=== PATIENT | male | born 1990 | race Caucasian/White ===

== ENCOUNTER 2023-04-16 10:26 | Emergency (ER) | payer OTHER, MEDICAID ==
[~2023-04-16] VITALS: Ht 185.4 cm; Wt 129.0 kg
[2023-04-16 10:37] VITALS: O2SAT 99
[2023-04-16] MEDS ORDERED: KETOROLAC 15MG/ML VIAL IV ONE ×2 (12:15→16:15)
[2023-04-16] MEDS ORDERED: AMPICILLIN SOD/SULBACTAM NA 3 G in SODIUM CHLORIDE 0.9% 100 ML IV SCH (12:15)
[2023-04-16 13:08] LABS: BASOPHILS % 0.3 % (0.0-2.0); EOSINOPHILS % 0.3 % (0.0-5.0); HEMATOCRIT. 48.5 % (42.0-52.0); HEMOGLOBIN. 16.6 g/dL (14.0-18.0); LYMPHOCYTES % 10.8 % (20.0-50.0); MEAN CORPUSCULAR HEMOGLOBIN 29.8 pg (28.0-32.0); MEAN CORPUSCULAR HGB CONC 34.3 g/dL (31.0-37.0); MEAN CORPUSCULAR VOLUME 87.1 fL (80.0-94.0); MEAN PLATELET VOLUME 7.3 fl (7.4-10.4); MONOCYTES % 8.7 % (2.0-8.0); NEUTROPHILS % 79.9 % (40.0-76.0); PLATELET 287 x1000/uL (130-400); RED BLOOD CELL COUNT 5.57 mill/uL (4.7-6.1); RED CELL DISTRIBUTION WIDTH 12.7 % (11.6-14.6); WHITE BLOOD COUNT 13.6 x1000/uL (4.5-11.0)
[2023-04-16 13:14] LABS: CHLORIDE 102 mEq/L (98-107); INDEX HEMOLYSI 1 (1-3); INDEX ICTERIC 1 (1-4); INDEX LIPEMIC 1 (1-3); POTASSIUM 3.5 mEq/L (3.5-5.1); SODIUM 136 mEq/L (136-145)
[2023-04-16 13:24] LABS: ALANINE AMINOTRANSFERASE 29 IU/L (13-61); ALBUMIN 4.5 g/dL (3.4-5.0); ASPARTATE AMINOTRANSFERASE 14 IU/L (15-37); BILIRUBIN TOTAL 1.4 mg/dL (0.1-1.0); CALCIUM 9.5 mg/dL (8.5-10.1); CARBON DIOXIDE 28 mEq/L (21-32); CREATININE 0.9 mg/dL (0.6-1.3); GLUCOSE 110 mg/dL (70-105); PROTEIN TOTAL 9.7 g/dL (6.0-8.3); UREA NITROGEN BLOOD 10 mg/dL (7-21)
[2023-04-16] MEDS ORDERED: IOHEXOL-300 100 ML BOTTLE ONE (14:57)
[2023-04-16 16:21] VITALS: BP 135/85; PULSE 75; RESP 15; TEMP 98.9
== END 2023-04-16 16:26 | disposition home or self-care (01) ==
LOC: ER 10:26
DX: K04.7 Periapical abscess without sinus (principal); R22.0 Localized swelling, mass and lump, head; I88.8 Other nonspecific lymphadenitis; J02.9 Acute pharyngitis, unspecified; Z90.49 Acquired absence of other specified parts of digestive tract
CPT/HCPCS: 99285; 96365; 70491; 96375; 80053; 83605; 85025; 87040; 36415; 96376; Q9967; J0295; J1885; J7050